=== PATIENT | male | born 1990 | race Caucasian/White ===

== ENCOUNTER 2022-02-25 08:24 | Emergency (ER) | payer SELFPAY ==
[~2022-02-25] VITALS: Ht 165.1 cm; Wt 90.7 kg
[2022-02-25 08:30] VITALS: BP 166/90
[2022-02-25] MEDS ORDERED: CLONIDINE HYDROCHLORIDE 0.1 MG TAB PO ONE (08:35)
--- NOTE | 2022-02-25 08:40 | NUR ---
DR LI BY CHAIR FOR [place]
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
[2022-02-25 09:15] VITALS: BP 141/79
--- NOTE | 2022-02-25 09:15 | NUR ---
PATIENT [facility] POLICE DEPT. PATIENT EXAMINED BY DR. LI. PATIENT MEDICALLY CLEARED AND RELEASED IN CUSTODY IN STABLE CONDITION. ORIGINAL PRE-BOOK FORM GIVEN TO OFFICER JOSH Lang9. Patient discharged with v/s stable BY DR. LI, verbal ,after care instructions given and explained. Patient verbalized understanding. Ambulatory with in custody. All questions addressed prior to discharge. Advised to follow up with PMD.
== END 2022-02-25 09:15 ==
LOC: MED 08:24
DX: I10 Essential (primary) hypertension (principal); Z02.89 Encounter for other administrative examinations; Z88.0 Allergy status to penicillin; Z91.011 Allergy to milk products
CPT/HCPCS: 99283